=== PATIENT | male | born 1960 | race Two or more races ===

== ENCOUNTER 2018-10-07 13:34 | Emergency (ER) | payer MEDICAID ==
[~2018-10-07] VITALS: Ht 177.8 cm; Wt 102.3 kg
[~2018-10-07 13:34] MED LIST: DIPH25CA83 PO
[2018-10-07 13:49] VITALS: BP 140/79
[2018-10-07] MEDS ORDERED: ACET-2119 PO (14:38)
[2018-10-07] MEDS ORDERED: IBUP-1984 PO (14:38)
[2018-10-07] MEDS ORDERED: CLIN150C2 PO (14:38)
== END 2018-10-07 14:51 | disposition home or self-care (01) ==
LOC: ER 13:34
DX: K02.9 Dental caries, unspecified (principal); F10.99 Alcohol use, unspecified with unspecified alcohol-induced disorder; Z79.899 Other long term (current) drug therapy; Y90.9 Presence of alcohol in blood, level not specified
CPT/HCPCS: 99283

== ENCOUNTER 2019-07-25 13:18 | Emergency (ER) | payer MEDICAID ==
[~2019-07-25] VITALS: Ht 177.8 cm; Wt 100.0 kg
--- NOTE | 2019-07-25 13:36 | NUR ---
xray at bedside
[2019-07-25 13:43] LABS: BASOPHILS # (AUTO) 0.1 X10'3 (0-0.2); EOSINOPHILS # (AUTO) 0.3 X10'3 (0-0.9); EOSINOPHILS % (AUTO) 2.7 % (0-6); HEMOGLOBIN 16.8 g/dl (14.0-17.9); LYMPHOCYTES # (AUTO) 2.4 X10'3 (1.1-4.8); LYMPHOCYTES % (AUTO) 23.6 % (21-51); MEAN CORPUSCULAR HEMOGLOBIN 29.7 PG (27.0-31.0); MEAN CORPUSCULAR HGB CONC 34.2 g/dL (33.0-36.5); MEAN CORPUSCULAR VOLUME 86.8 FL (78-98); MEAN PLATELET VOLUME 8.6 FL (7.4-10.4); MONOCYTES # (AUTO) 0.8 X10'3 (0-0.9); MONOCYTES % (AUTO) 7.4 % (2-12); NEUTROPHILS # (AUTO) 6.8 X10'3 (1.8-7.7); NEUTROPHILS % (AUTO) 65.3 % (42-75); PLATELET COUNT 220 X10'3 (140-440); RED BLOOD COUNT 5.64 X10'6 (4.70-6.10); RED CELL DISTRIBUTION WIDTH 13.4 % (11.5-14.5); WHITE BLOOD COUNT 10.4 X10'3 (4.5-11.0)
[2019-07-25 13:59] LABS: ALANINE AMINOTRANSFERASE 146 U/L (12-78); ALBUMIN 3.5 G/DL (3.4-5.0); ALBUMIN/GLOBULIN RATIO 0.8 (1.1-1.5); ALKALINE PHOSPHATASE 117 IU/L (46-116); ANION GAP 11 (8-16); ASPARTATE AMINO TRANSFERASE 77 U/L (10-37); BILIRUBIN,TOTAL 0.5 MG/DL (0.1-1.0); BLOOD UREA NITROGEN 21 MG/DL (7-18); BUN/CREATININE RATIO 21.9 (5.4-32.0); CALCIUM 9.1 MG/DL (8.5-10.1); CHLORIDE 104 MMOL/L (99-107); CREATININE 0.96 MG/DL (0.60-1.10); GLUCOSE 158 MG/DL (70-104); POTASSIUM 4.1 MMOL/L (3.5-5.1); SODIUM 137 MMOL/L (135-145); TOTAL PROTEIN 7.8 G/DL (6.4-8.2); eGFR 81 ML/MIN
[2019-07-25 14:38] LABS: LIPASE 120 U/L (73-393)
[2019-07-25 14:48] LABS: D-DIMER < 0.19 MG/L FEU (0-0.50)
[2019-07-25] MEDS ORDERED: famotidine 20mg tablet PO ONE (15:05)
[2019-07-25 15:25] VITALS: BP 163/89
== END 2019-07-25 15:29 ==
LOC: ER 13:18
DX: R07.89 Other chest pain (principal); Z72.89 Other problems related to lifestyle; Z79.899 Other long term (current) drug therapy
CPT/HCPCS: 36415; 71045; 80053; 83690; 84484; 85025; 85379; 93005; 99285

== ENCOUNTER 2024-07-27 14:46 | Emergency (ER) | payer MEDICAID ==
[~2024-07-27] VITALS: Ht 175.3 cm; Wt 84.6 kg
[2024-07-27 14:54] VITALS: BP 164/74; PULSE 99; RESP 15; O2SAT 97
--- NOTE | 2024-07-27 16:16 | Physician Documentation ---
History of Present Illness ~ Chief Complaint: Ingestion Error Stated Complaint: ALLERGIC REACTION Time Seen by MD: 16:00 Primary Medical Doctor: olivia VEGA Patient is seen today with complaints of accidentally ingesting a tablet of unknown origin and unknown composition. Patient states he takes Suboxone but forgot his dose this morning and a friend offered him a Suboxone however he did not allow the tablet to dissolve in his mouth and he swallowed instead because he usually takes the films in his unfamiliar with taking the sublingual tablet. After a little while patient states he developed nausea and significant diaphoresis and not feeling well and turns out the patient's friend actually did not give him a Suboxone and he is not actually sure what it is but thinks it might have been naloxone or naltrexone tablet. Patient denies any chest pain or shortness of breath or abdominal pain or diarrhea. Patient has no other concern or complaint at this time. Patient states he was then shortly after that able to take his Suboxone. Medication Reconciliation Allergies: Coded Allergies: No Known Allergies (Unverified , 12/13/13) Scheduled Diphenhydramine Hcl (Benadryl), 25 MG PO TID Past Medical History Past Medical History: No Pertinent History Past Surgical History: no surgical history Alcohol Use: Occasionally Drug Use: none Lives with: S/O Lives In: Home Review of Systems Constitutional: Denies: chills, fever, weakness Eyes: Denies: pain, blurred vision ENT: Denies: ear pain, nose pain, throat pain, mouth pain Respiratory: Denies: cough, shortness of breath Cardiovascular: Denies: chest pain, palpitations Gastrointestinal: Denies: abdominal pain, nausea, vomiting Genitourinary: Denies: burning, dysuria Male Genitalia: Denies: penile discharge, testicular pain Neurological: Denies: headache, dizziness Musculoskeletal: Denies: pain, swelling Integumentary: Denies: rash, lesions Allergic/Immunologic: Denies: hives, itching Hematologic/Lymphatic: Denies: no symptoms reported Psychiatric: Denies: depression, anxiety Physical Exam Vital Signs: Temperature: 98.1, Source: Temporal, Heart Rate: 99, Respiratory Rate: 15, BP: 164/74, Pulse Oximetry: 97, Weight: 84.600 Physical Exam General: Awake and Alert, no acute distress. Patient is diaphoretic HEENT: Conjunctiva pink, Sclera clear, Mucus Membranes moist. Neck: Supple without masses and tenderness. Resp: Unlabored. Lungs clear to auscultation bilaterally. Heart: Regular Rate and rhythm, normal S1 and S2 without murmur, rub or gallop. Abdomen: Soft and non tender no organomegaly Extremities: No cyanosis,clubbing or edema. Skin: Warm and Dry. Progress Results/Orders Results/Orders Vital Signs 07/27/24 14:54 Temp 98.1 Pulse 99 Resp 15 B/P (MAP) 164/74 Pulse Ox 97 Medical Decision Making Findings Patient is seen today with complaints of accidentally ingesting a tablet of unknown origin and unknown composition. Patient states he takes Suboxone but forgot his dose this morning and a friend offered him a Suboxone however he did not allow the tablet to dissolve in his mouth and he swallowed instead because he usually takes the films in his unfamiliar with taking the sublingual tablet. After a little while patient states he developed nausea and significant diaphoresis and not feeling well and turns out the patient's friend actually did not give him a Suboxone and he is not actually sure what it is but thinks it might have been naloxone or naltrexone tablet. Patient denies any chest pain or shortness of breath or abdominal pain or diarrhea. Patient has no other concern or complaint at this time. Patient states he was then shortly after that able to take his Suboxone. Patient was given a dose of Zofran 8 mg ODT. Once in the ED today. Patient declined prescription of Zofran sent to his pharmacy at this time. Patient strongly advised to not take anyone else's prescription medications and to not take anything that is not prescribed to him. Patient voiced understanding. Patient will continue his other medications as prescribed. Return to ED with any worsening, concerning or changing symptoms. Departure Disposition: HOME / SELF CARE / HOMELESS Impression: Primary Impression: Nausea Additional Impression: Accidental ingestion of substance Qualified Codes: T65.91XA - Toxic effect of unspecified substance, accidental (unintentional), initial encounter Condition: Improved Discharge Instructions: Opioid Overdose Additional Instructions: Patient was given a dose of Zofran 8 mg ODT. Once in the ED today. Patient declined prescription of Zofran sent to his pharmacy at this time. Patient strongly advised to not take anyone else's prescription medications and to not take anything that is not prescribed to him. Patient voiced understanding. Patient will continue his other medications as prescribed. Return to ED with any worsening, concerning or changing symptoms. Referrals: NO PRIMARY CARE PROVIDER (PCP) Signature Scribe Signature: No scribe Attestation: No scribe HEMANTH DUMONT July 27, 2024 16:16
[2024-07-27] MEDS: ondansetron 4mg rapidly disintigrating tab PO STA (16:23)
[2024-07-27 16:26] VITALS: TEMP 98.1
== END 2024-07-27 16:30 | disposition home or self-care (01) ==
LOC: ER 14:47
DX: R11.0 Nausea (principal); T40.495A Adverse effect of other synthetic narcotics, initial encounter; Z79.899 Other long term (current) drug therapy; Z72.89 Other problems related to lifestyle; Y92.89 Other specified places as the place of occurrence of the external cause
CPT/HCPCS: 99283